=== PATIENT | male | born 1960 | race Caucasian/White ===

== ENCOUNTER 2018-12-17 17:29 | Emergency (ER) | payer OTHER ==
[2018-12-17 17:51] VITALS: BP 176/102; PULSE 77; TEMP 98.2; BMI 29.7
--- NOTE | 2018-12-17 17:54 | PDOC ---
History of Present Illness - General Chief Complaint: Pain Stated Complaint: LEFT UPPER DENTAL PAIN SINCE YESTERDAY Time Seen by Provider: 12/17/18 17:35 History Source: Patient Exam Limitations: No Limitations - History of Present Illness Initial Comments: 12/17/18 17:55 58y M hx of htn, hl, iddm presents with 24 hrs of dental pain. Pt states he fractured a tooth approx 6 months ago whiel eating something, it didnt really both him so he never sought treatment. Starting esyterday he started having more pain/sensitivity to heat/cold at the root of his L upper cuspd. denies any fever/chills, n/v, facial pain, numnbess/tingling/weakness. taking motrinwithout significant improvement ROS: general: denies Fever/chills, GI: denies n/v, abd pain ENT: + deental pain Physical exam: General: no acute distress, well appearing HEENT: no focaial edema, no induration/tenderness/eryuthema/swelling along gums , pt does have poor dention in general and on left upper bicuspid, there is a missing crown with exposed root. no signs of acute infection. suspect fractured tooth, root sensitivity no signs of infection willgive prophy abx due to hx of dm will give percocet will refer pt to dentist for further management is driving home so will give pt a dose of percocet here. discussed improtance of avoid tylenol when taking percocet. Past History - Past Medical History Allergies/Adverse Reactions: Allergies Allergy/AdvReac Type Severity Reaction Status Date / Time No Known Allergies Allergy Verified 02/20/16 11:24 Home Medications: Ambulatory Orders Insulin Aspart [Novolog] 0 unit SQ ASDIR 02/20/16 Insulin Glargine,Hum.rec.anlog [Lantus (10mL VIAL) -] 0 units SQ HS 02/20/16 Lisinopril [Prinivil] 10 mg PO DAILY #30 tablet 02/20/16 Olmesartan Medoxomil [Benicar (Nf)] 20 mg PO DAILY #30 tablet 02/20/16 Amoxicillin - [Amoxicillin 500mg Capsule -] 500 mg PO TID #12 capsule 12/17/18 Oxycodone HCl/Acetaminophen [Percocet 5-325 mg Tablet -] 1 combo PO Q6H PRN #10 tablet MDD 4 12/17/18 COPD: No Diabetes: Yes HTN: Yes - Suicide/Smoking/Psychosocial Hx Smoking History: Never smoked Information on smoking cessation initiated: No Hx Alcohol Use: No Drug/Substance Use Hx: No Substance Use Type: None *Physical Exam - Vital Signs Last Vital Signs Temp Pulse Resp BP Pulse Ox 98.2 F 77 16 176/102 H 98 12/17/18 17:30 12/17/18 17:30 12/17/18 17:30 12/17/18 17:30 12/17/18 17:30 *DC/Admit/Observation/Transfer Diagnosis at time of Disposition: Pain, dental - Discharge Dispostion Disposition: HOME Condition at time of disposition: Improved Decision to Admit order: No - Prescriptions Prescriptions: Oxycodone HCl/Acetaminophen [Percocet 5-325 mg Tablet -] 1 combo PO Q6H PRN #10 tablet MDD 4 PRN Reason: Pain - Referrals Referrals: Urgent Care, Dental [Other] - Patient Instructions Printed Discharge Instructions: DI for Dental Pain Additional Instructions: Please follow up with a dentist today or as soon as possible for evaluation of your dental pain. Take the medications as needed for pain. Print Language: DUTCH - Post Discharge Activity
== END 2018-12-17 18:02 | disposition home or self-care (01) ==
LOC: FER 17:29
DX: K08.89 Other specified disorders of teeth and supporting structures (principal); E11.9 Type 2 diabetes mellitus without complications; Z79.4 Long term (current) use of insulin; I10 Essential (primary) hypertension
CPT/HCPCS: 99282-25

== ENCOUNTER 2020-11-17 13:20 | Emergency (ER) | payer OTHER ==
[2020-11-17 13:28] VITALS: BP 158/94; PULSE 67; TEMP 98.2; BMI 27.9
[2020-11-17] MEDS ORDERED: IBUPROFEN 600 MG TABLET (FP) PO ONE ×2 (13:54→14:04)
== END 2020-11-17 14:20 | disposition home or self-care (01) ==
LOC: FER 13:20
DX: K08.9 Disorder of teeth and supporting structures, unspecified (principal)
CPT/HCPCS: 99283-25